=== PATIENT | male | born 1975 | race Two or more races ===

== ENCOUNTER → 2018-03-20 16:25 | Outpatient (CLI) | payer OTHER, SELFPAY ==
[2018-03-20 16:53] LABS: Basophils % 0.4 % (0.1-2.0); Eosinophils # 0.2 K/mm3 (0.0-0.4); Eosinophils % 2.9 % (0.1-12.0); Hematocrit 51.6 % (42.0-52.0); Hemoglobin 17.1 g/dL (14.1-18.0); Mean Corpuscular HGB Conc 33.2 g/dL (31.8-35.4); Mean Corpuscular Hemoglobin 28.9 pg (27.0-31.2); Mean Corpuscular Volume 87.2 fl (80-94); Mean Platelet Volume 10.3 fl (7.4-10.4); Monocytes # 0.4 K/mm3 (0.1-1.0); Monocytes % 5.2 % (1.7-9.3); Neutrophils # 4.7 K/mm3 (1.8-7.8); Neutrophils % 64.5 % (37.0-80.0); Platelet Count 159 K/mm3 (142-424); Red Blood Count 5.92 M/mm3 (4.60-6.20); Red Cell Distribution Width 13.1 % (11.5-17.5); White Blood Count 7.2 K/mm3 (4.8-10.8)
[2018-03-20 17:14] LABS: Hemoglobin A1C 5.4 % (0.0-7.0)
[2018-03-20 19:28] LABS: Alanine Aminotransferase 41 U/L (12-78); Albumin Level 5.1 gm/dL (3.4-5.0); Albumin/Globulin Ratio 1.4 (1.1-1.8); Alkaline Phosphatase 88 U/L (46-116); Anion Gap 10.7 mEq/L (5-15); Aspartate Amino Transferase 22 U/L (15-37); Bilirubin,Total 0.5 mg/dL (0.2-1.0); Blood Urea Nitrogen 8 mg/dL (7-18); Calcium 9.8 mg/dL (8.5-10.1); Carbon Dioxide 30 mmol/L (21.0-32.0); Chloride 104 mmol/L (98-107); Chol/HDL Ratio 4.6 (1-3.5); Cholesterol 213 mg/dL (140-200); Creatinine,Serum 0.92 mg/dL (0.70-1.30); Estimated Glomerular Filt Rate 90 ml/min (>60); GFR (African American) 109 ML/MIN (>60); Globulin 3.7 gm/dl (1.3-3.2); Glucose 92 mg/dL (74-106); HDL Cholesterol 46 mg/dL (27-67); LDL Cholesterol 144 mg/dL (0-130); Potassium 3.7 mmoL/L (3.5-5.1); Sodium 141 mmol/L (136-145); T4 (Thyroxine) 9.5 ug/dl (4.7-13.3); Thyroid Stimulating Hormone 1.98 uIU/ml (0.358-3.740); Total Protein,Serum 8.8 gm/dL (6.4-8.2); Triglycerides 115 mg/dL (30-200); VLDL Cholesterol 23 mg/dL (0-40)
[2018-03-22 07:15] LABS: Hep A Ab, IgM Negative (Negative); Hepatitis B Core Antibody IgM Negative (Negative); Hepatitis B Surface Antigen Negative (Negative)
[2018-03-22 18:05] LABS: Hepatitis C Antibody <0.1 s/co ratio (0.0-0.9); Vitamin D 25 Hydroxy 31.2 ng/mL (30.0-100.0)
[2018-03-22 18:06] LABS: Microalbumin, Urine 6.3 ug/mL (Not Estab.)
== END ==
PROVIDERS: Visit Provider Nurse Practitioner Family
DX: G62.9 Polyneuropathy, unspecified (principal); R73.9 Hyperglycemia, unspecified; M79.671 Pain in right foot; M79.672 Pain in left foot
CPT/HCPCS: 36415; 80053; 80061; 80074; 82043; 82652; 83036; 84436; 84443; 85025

== ENCOUNTER → 2018-04-08 14:49 | Outpatient (CLI) | payer OTHER, SELFPAY ==
--- NOTE | 2018-04-08 14:53 | MR_ITS ---
MR thoracic spine wo con HISTORY: Knot on back. Bilateral Hip pain and mid back pain. Rt sided back pain. ITS.REASON: mass ORDERING PHYSICIAN: Kyle Hamilton MD PATIENT AGE: 43 years Comparison: None TECHNIQUE: Standard multiplanar multiecho sequences are performed without contrast. 3-D MIP and myelographic images are also rendered and reviewed FINDINGS: There is normal alignment. There is mild mid thoracic curvature convex right. No acute bony findings are evident. No fracture or dislocation. No bony destructive process. No evidence of disc herniation. No intra or extradural defects are evident. A marker is placed low back area posteriorly overlying the palpable area of concern. There is a subcutaneous lipoma at this region measuring 7.4 cm cephalad to caudad, 2.4 cm in thickness, and up to 5.4 cm transverse. This is epicentered directly posterior to the spinous process of L1 and L2. This does not communicate with the intrathecal region. No complex components identified. IMPRESSION: Palpable abnormality of the low back at the L1-L2 area in midline corresponds to a benign-appearing lipoma
== END ==
PROVIDERS: PCP Nurse Practitioner Family; Visit Provider Surgery
DX: L72.9 Follicular cyst of the skin and subcutaneous tissue, unspecified (principal)
CPT/HCPCS: 72146

== ENCOUNTER → 2018-04-22 11:37 | Outpatient (CLI) | payer OTHER, SELFPAY ==
[2018-04-22 12:01] LABS: Basophils # 0.1 K/mm3 (0-0.2); Basophils % 0.6 % (0.1-2.0); Eosinophils # 0.2 K/mm3 (0.0-0.4); Eosinophils % 2.2 % (0.1-12.0); Hematocrit 43.1 % (42.0-52.0); Hemoglobin 15.6 g/dL (14.1-18.0); Lymphocytes # 2.7 K/mm3 (0.7-4.5); Mean Corpuscular HGB Conc 36.1 g/dL (31.8-35.4); Mean Corpuscular Hemoglobin 31.3 pg (27.0-31.2); Mean Corpuscular Volume 86.9 fl (80-94); Mean Platelet Volume 9.4 fl (7.4-10.4); Monocytes # 0.6 K/mm3 (0.1-1.0); Monocytes % 7.4 % (1.7-9.3); Neutrophils % 58.7 % (37.0-80.0); Platelet Count 177 K/mm3 (142-424); Red Blood Count 4.96 M/mm3 (4.60-6.20); Red Cell Distribution Width 13.4 % (11.5-17.5); White Blood Count 8.6 K/mm3 (4.8-10.8)
[2018-04-22 13:44] LABS: Anion Gap 12.3 mEq/L (5-15); Blood Urea Nitrogen 9 mg/dL (7-18); Calcium 9.1 mg/dL (8.5-10.1); Carbon Dioxide 30 mmol/L (21.0-32.0); Chloride 105 mmol/L (98-107); Creatinine,Serum 0.82 mg/dL (0.70-1.30); Estimated Glomerular Filt Rate 103 ml/min (>60); GFR (African American) 124 ML/MIN (>60); Glucose 92 mg/dL (74-106); Potassium 4.3 mmoL/L (3.5-5.1); Sodium 143 mmol/L (136-145)
== END ==
PROVIDERS: PCP Physician Assistant; Visit Provider Surgery
DX: D17.1 Benign lipomatous neoplasm of skin and subcutaneous tissue of trunk (principal)
CPT/HCPCS: 36415; 80048; 85025

== ENCOUNTER → 2018-05-27 08:28 | Outpatient (CLI) | payer OTHER, SELFPAY ==
--- NOTE | 2018-05-27 08:29 | CT_ITS ---
CT abdomen pelvis w con CLINICAL INDICATION: Right lower quadrant pain, appendicolith ITS.REASON: abdominal pain ORDERING PHYSICIAN: Kyle Hamilton MD PATIENT AGE: 43 years COMPARISON: 05/19/2018 TECHNIQUE: Axial images obtained with sagittal and coronal reformats. All CT scans at the facility use one or more dose reduction, viz: automated exposure control, ma/kV adjustment per patient size (including targeted exams where dose is matched to indication, i.e. head), or iterative reconstruction technique. PROCEDURE: Oral Contrast: Redicat IV Contrast: 75 mL's of Isovue-370. FINDINGS: No acute finding in the lung bases. The liver, spleen, adrenal glands, pancreas, and gallbladder have an unremarkable appearance. No renal or ureteral calculi. No hydronephrosis No intestinal obstruction or free air. The appendix has an unremarkable appearance. No intestinal obstruction or free air. No evidence of diverticulitis. No focal inflammatory change apparent. No pelvic mass or abnormal fluid collection. The prostate is somewhat prominent at 5.3 x 4.3 cm. There is a tiny umbilical hernia containing fat. No acute bony anomalies. There is a well-circumscribed lucent defect involving the left ilium and posteriorly having a benign appearance measuring approximately 11 mm. IMPRESSION: 1. No acute finding. No evidence of appendicitis. 2. Other nonacute findings as described above
== END ==
PROVIDERS: PCP Physician Assistant; Visit Provider Surgery
DX: R10.9 Unspecified abdominal pain (principal)
CPT/HCPCS: 74177; Q9967

== ENCOUNTER 2020-01-06 10:21 | Emergency (ER) | payer SELFPAY ==
[2020-01-06 10:24] VITALS: BP 138/93; PULSE 76; RESP 18; TEMP 36.7; O2SAT 97; BMI 25.2
--- NOTE | 2020-01-06 11:32 | HMH.EDWNDL ---
ED Disposition Clinical Impression: Laceration Disposition: Home, Self-Care Condition on Discharge: Good Instructions: DI for Laceration Repair Referrals: Vaishnavi Sanches PA [Primary Care Provider] - - Critical Care Critical Care Time: No Attestation: On 01/06/20, the high probability of a clinically significant, sudden or life threatening deterioration of the following system(s) required my full and direct attention, intervention and personal management. The time I documented below is in addition to time spent performing reported procedures but includes the following listed in this critical care notation. Medical Decision Making - Medical Records Medical records reviewed: Yes: I reviewed the patient's medical records. - Mack Inquiry Pt receiving controlled substance: No Vital Signs: 01/06/20 10:24 Temperature 98.1 F Temperature Source Oral Pulse Rate [Radial] 76 Respiratory Rate 18 Blood Pressure [Right Arm] 138/93 H Blood Pressure Mean [Right Arm] 108 Blood Pressure Source [Right Arm] Automatic Cuff Blood Pressure Position [Right Arm] Sitting 02 Sat by Pulse Oximetry 97 Oxygen Delivery Method Room Air - Lab Data Lab results reviewed: Yes: I reviewed the patient's lab results. Wound/Laceration HPI - General Chief Complaint: Wound/Laceration Stated Complaint: Ao [id number] lac to left palm,home accident Time Seen by Provider: 01/06/20 11:32 Mode of Arrival: Ambulatory Limitations: No Limitations Description of Symptoms (Recalled from ER Triage Doc. by RN): cut left palm of hand with a knife - History of Present Illness HPI narrative: 44-year-old male presents with a laceration on the left anterior part of his hand. Placed just prior to arrival Onset (ago): minute(s) Location: other Extremity Location: Left: hand Place: home Patient tetanus UTD: Yes Context: accidental Associated symptoms: none Treatments prior to arrival: cold therapy - Related Data Home Medications Medication Instructions Recorded Confirmed No Known Home Medications 09/18/19 09/18/19 Allergies Allergy/AdvReac Type Severity Reaction Status Date / Time No Known Allergies Allergy Verified 03/21/19 23:31 [facility] History - Hepatitis A Screen Drug use history?: No High risk sexual behaviors?: No History of sexually transmitted infection?: No Currently employed?: No Childcare worker?: No Do you have indoor plumbing?: Yes Do you have electricity?: Yes Attestation statement:: This patient has been screened for Hepatitis A risk factors. I have reviewed the patient's past medical history: Yes Medical History: Denies:: Cancer, Diabetes Mellitus Type 1, Diabetes Mellitus Type 2, MRSA, Seizures Other Medical History: Denies: Blood Transfusion Reaction Other Surgeries: Yes: No Previous Surgery, Other Amputation: No Fractures: No - Social History Educational Level: Completed High School Smoking Status: Current every day smoker # Packs/Day (cigarettes): 1 Alcohol Intake: never Substance Use Type: denies use Occupational Status: employed Housing: house Household Members: family Family Hx:: Heart Attack, Diabetes, Kidney Disease ROS Obtained: Yes All systems reviewed & no additional complaints - Constitutional Constitutional: Reports system reviewed and no additional complaints, except as docu - Eyes Eyes: Reports system reviewed and no additional complaints, except as docu - ENT Ears, Nose, Mouth, and Throat: Reports system reviewed and no additional complaints, except as docu - Cardiovascular Cardiovascular: Reports system reviewed and no additional complaints, except as docu - Respiratory Respiratory: Yes system reviewed and no additional complaints, except as docu - Gastrointestinal Gastrointestingal: Reports: system reviewed and no additional complaints, except as docu - Genitourinary Male Genitourinary: Reports system reviewed and no additional complaints, except as doc
[2020-01-06 11:47] VITALS: BP 122/48; PULSE 78; RESP 18; TEMP 36.8; O2SAT 100
== END 2020-01-06 11:48 | disposition home or self-care (01) ==
PROVIDERS: Emergency Provider Family Medicine; PCP Physician Assistant
DX: S61.412A Laceration without foreign body of left hand, initial encounter (principal); W26.0XXA Contact with knife, initial encounter; Y92.019 Unspecified place in single-family (private) house as the place of occurrence of the external cause; F17.210 Nicotine dependence, cigarettes, uncomplicated
CPT/HCPCS: 12002; 99282

== ENCOUNTER 2020-01-16 15:56 | Emergency (ER) | payer SELFPAY ==
[2020-01-16 15:57] VITALS: BP 112/76; PULSE 81; RESP 19; TEMP 36.8; O2SAT 100; BMI 23.6
[2020-01-16 16:00] VITALS: BMI 23.5
[2020-01-16 16:09] VITALS: BP 112/76; PULSE 81; RESP 19; TEMP 36.8; O2SAT 100
== END 2020-01-16 16:11 | disposition home or self-care (01) ==
PROVIDERS: Emergency Provider Nurse Practitioner; PCP Physician Assistant
DX: S61.412D Laceration without foreign body of left hand, subsequent encounter (principal)
CPT/HCPCS: 99201

== ENCOUNTER 2021-03-28 19:31 | Emergency (ER) | payer SELFPAY ==
[2021-03-28 20:39] VITALS: BP 121/67; PULSE 74; RESP 19; TEMP 36.8; O2SAT 98; BMI 22.0
--- NOTE | 2021-03-28 20:54 | HMH.EDUTC ---
[facility] [place] Disposition Clinical Impression: Exposure to COVID-19 virus, Viral syndrome Disposition: Home, Self-Care Condition on Discharge: Good Instructions: Preventing the Spread of Coronavirus Discharge Instructions Additional Instructions: Drink plenty of fluids. Take tylenol for pain or fever. Return if you begin to have difficulty breathing. Follow up with your regular doctor. GO TO THE ER FOR ANY WORSENING SYMPTOMS Quarantine until you know the results of your covid-19 test. If it is positive, the health department should call you and give you further instructions about your length of Quarantine and other thing. Prescriptions: Ondansetron [Zofran 4mg ODT] 4 mg PO Q8HP PRN #20 tab.rapdis PRN Reason: Nausea Transmission Status: Received by [id number] Referrals: Emelia Cobb APRN [Primary Care Provider] - Forms: Work/School Release Time of Disposition: 20:55 Medical Decision Making - Medical Records Medical records reviewed: No: I reviewed the patient's medical records. - Mack Inquiry Pt receiving controlled substance: No Vital Signs: 03/28/21 20:39 03/28/21 20:58 Temperature 98.2 F 98.2 F Temperature Source Tympanic Pulse Rate 74 Pulse Rate [Left] 74 Respiratory Rate 19 19 Blood Pressure 121/67 Blood Pressure [Right Arm] 121/67 Blood Pressure Mean [Right Arm] 85 02 Sat by Pulse Oximetry 98 - Lab Data Lab results reviewed: Yes: I reviewed the patient's lab results. Lab Results 03/28/21 20:58: Strep Scn Rapid Clinic Negative Orders (Tests/Meds): ORDERS Category Date Time Status Covid-19 Nasal PCR ([facility]) Routine Lab 03/28/21 20:35 Received Strep Screen Confirmation Stat Micro 03/28/21 20:58 Received [facility] [place] HPI - General Stated complaint: covid symptoms Time Seen by Provider: 03/28/21 20:54 Mode of Arrival: Ambulatory Source of Information: Patient Limitations: No Limitations Description of Symptoms (Recalled from Triage Doc. by RN): COVID TESTING SYMPTOMS SORE THROAT AND COUGH HEENT Symptoms (Recalled from RN notes): Yes Resp Symptoms (Recalled from RN notes): Yes Skin Symptoms (Recalled from RN notes): No MS Symptoms (Recalled from RN notes): No Functional Status (Recalled from RN notes): WNL - History of Present Illness Provider Complaint: He states that he has had a scratchy throat and chilling since yesterday. He has been exposed to covid. - Related Data Previous Rx's Medication Instructions Recorded Ondansetron [Zofran 4mg ODT] 4 mg PO Q8HP PRN #20 tab.rapdis 03/28/21 Allergies Allergy/AdvReac Type Severity Reaction Status Date / Time No Known Allergies Allergy Verified 03/28/21 20:42 - Worker's Comp Is this a Worker's Comp case?: No [facility] History - Hepatitis A Screen Drug use history?: No High risk sexual behaviors?: No History of sexually transmitted infection?: No Currently employed?: No Childcare worker?: No Do you have indoor plumbing?: Yes Do you have electricity?: Yes Attestation statement:: This patient has been screened for Hepatitis A risk factors. I have reviewed the patient's past medical history: Yes Medical History: Denies:: Cancer, Diabetes Mellitus Type 1, Diabetes Mellitus Type 2, MRSA, Seizures Other Medical History: Denies: Blood Transfusion Reaction Other Surgeries: Yes: No Previous Surgery, Other Amputation: No Fractures: No - Social History Smoking Status: Current every day smoker # Packs/Day (cigarettes): 1 Alcohol Intake: never Substance Use Type: denies use Occupational Status: employed Housing: house Household Members: family Family Hx:: Heart Attack, Diabetes, Kidney Disease ROS Obtained: Yes All systems reviewed & no additional complaints - Constitutional Constitutional: Reports system reviewed and no additional complaints, except as docu - Eyes Eyes: Reports system reviewed and no additional complaints, except as docu - ENT Ears, Nose, Mouth
[2021-03-28 20:58] VITALS: BP 121/67; PULSE 74; RESP 19; TEMP 36.8; O2SAT 98
[2021-03-28 21:12] LABS: UTC Strep Screen (Rapid) Negative (Negative)
--- NOTE | 2021-03-29 11:53 | PC.NURSE ---
relayed covid positive results to .
== END 2021-03-28 21:05 | disposition home or self-care (01) ==
PROVIDERS: Emergency Provider Nurse Practitioner Family; PCP Nurse Practitioner Family
DX: U07.1 COVID-19 (principal); B34.9 Viral infection, unspecified
CPT/HCPCS: 87880; 99202; G0463; U0003

== ENCOUNTER 2021-08-28 11:56 | Emergency (ER) | payer SELFPAY ==
[2021-08-28 12:45] VITALS: BP 142/87; PULSE 66; RESP 20; TEMP 36.7; O2SAT 98; BMI 25.2
--- NOTE | 2021-08-28 13:11 | HMH.EDUTC ---
[facility] [place] Disposition Clinical Impression: Exposure to COVID-19 virus, Viral syndrome Acute bronchitis Qualifiers: Bronchitis organism: unspecified organism Qualified Code(s): J20.9 - Acute bronchitis, unspecified Disposition: Home, Self-Care Condition on Discharge: Good Instructions: Acute Bronchitis, DI for Acute Bronchitis Additional Instructions: Drink plenty of fluids. Take tylenol or ibuprofen for pain or fever. Take the medications as directed. Follow up with your regular doctor. GO TO THE ER FOR ANY WORSENING SYMPTOMS Quarantine until you know the results of your covid-19 test. If it is positive, the health department should call you and give you further instructions about your length of Quarantine and other things. Notify your school or workplace of your results and follow their instructions regarding return to work/school. Don't start the oral steroids until tomorrow, since you had the shot here today. The cough medication (promethazine dm) will make you drowsy, so don't drive or operate heavy machinery after taking it. Prescriptions: Promethazine/Dextromethorphan [Promethazine-Dm Syrup] 5 ml PO Q6HP PRN #240 ml PRN Reason: Cough Transmission Status: Received by [id number] Amoxicillin/Potassium Clav [Augmentin 875-125 Tablet] 1 tab PO Q12H 10 Days #20 tab Transmission Status: Received by [id number] methylPREDNISolone [Medrol] 4 mg PO DIRECTED 6 Days #21 packet Transmission Status: Received by [id number] Referrals: Provider,Referral, [Primary Care Provider] - Forms: Work/School Release Time of Disposition: 14:06 Medical Decision Making - Medical Records Medical records reviewed: No: I reviewed the patient's medical records. - Mack Inquiry Pt receiving controlled substance: No Vital Signs: 08/28/21 12:45 08/28/21 14:13 Temperature 98.0 F 98.0 F Temperature Source Oral Pulse Rate 66 Pulse Rate [Right Brachial] 66 Respiratory Rate 20 20 Blood Pressure 142/87 H Blood Pressure [Right Arm] 142/87 H Blood Pressure Mean [Right Arm] 105 Blood Pressure Source [Right Arm] Automatic Cuff Blood Pressure Position [Right Arm] Sitting 02 Sat by Pulse Oximetry 98 Oxygen Delivery Method Room Air - Lab Data Lab results reviewed: Yes: I reviewed the patient's lab results. Lab Results 08/28/21 13:41: Influenza Type A Ag Negative, Influenza Type B Ag Negative 08/28/21 13:41: Strep Scn Rapid Clinic Negative Orders (Tests/Meds): ED MEDICATIONS Discontinued Medications Generic Name Dose Route Start Last Admin Trade Name Freq PRN Reason Stop Dose Admin Ceftriaxone Sodium 1 gm 08/28/21 13:59 08/28/21 14:10 Ceftriaxone 1gm Vial IM 08/28/21 14:00 1 gm ONCE ONE Administration Lidocaine HCl 0 ml 08/28/21 13:59 08/28/21 14:10 Lidocaine 1% 5ml Pf Vial IM 08/28/21 14:00 2 ml ONCE ONE Administration Methylprednisolone Sodium Succinate 125 mg 08/28/21 13:59 08/28/21 14:10 Methylprednisolone Sod Succ 125mg Vial IM 08/28/21 14:00 125 mg ONCE ONE Administration ORDERS Category Date Time Status Covid-19 Nasal PCR ([facility]) Routine Lab 08/28/21 13:41 Received Strep Screen Confirmation Stat Micro 08/28/21 13:41 Received [facility] [place] HPI - General Stated complaint: cough, vomiting, h/a, runny nose Time Seen by Provider: 08/28/21 13:59 - History of Present Illness Provider Complaint: He states that for the past 4 days he has had a cough, chest congestion, sore throat and sinus congestion. He denies fever and chills. He denies shortness of breath. - Related Data Previous Rx's Medication Instructions Recorded Ondansetron [Zofran 4mg ODT] 4 mg PO Q8HP PRN #20 tab.rapdis 03/28/21 Amoxicillin/Potassium Clav 1 tab PO Q12H 10 Days #20 tab 08/28/21 [Augmentin 875-125 Tablet] Promethazine/Dextromethorphan 5 ml PO Q6HP PRN #240 ml 08/28/21 [Promethazine-Dm Syrup] methylPREDNISolone [Medrol]
[2021-08-28 13:44] LABS: UTC Influenza A Antigen Negative (Negative); UTC Influenza B Antigen Negative (Negative); UTC Strep Screen (Rapid) Negative (Negative)
[2021-08-28 14:13] VITALS: BP 142/87; PULSE 66; RESP 20; TEMP 36.7; O2SAT 98
== END 2021-08-28 14:20 | disposition home or self-care (01) ==
PROVIDERS: Emergency Provider Nurse Practitioner Family
DX: J20.9 Acute bronchitis, unspecified (principal); B34.9 Viral infection, unspecified; F17.210 Nicotine dependence, cigarettes, uncomplicated
CPT/HCPCS: 87804; 87880; 96372; 99202; C9803; G0463; J0696; U0003; U0005

== ENCOUNTER 2021-09-10 19:41 | Emergency (ER) | payer OTHER, SELFPAY ==
[2021-09-10 19:41] VITALS: BP 112/83; PULSE 70; RESP 18; TEMP 36.8; O2SAT 97; BMI 25.2
--- NOTE | 2021-09-10 20:45 | HMH.EDUTC ---
[facility] [place] Disposition Clinical Impression: Encounter for laboratory testing for COVID-19 virus Disposition: Home, Self-Care Condition on Discharge: Good Instructions: DI for COVID-19 (Suspected or Confirmed ), Preventing the Spread of Coronavirus Discharge Instructions Additional Instructions: *Monitor Temp, Over the counter Motrin or Tylenol as directed/as needed Tylenol every 4 hours and Motrin every 6 hours (as long as your family doctor has told you that you can take it) for fever or pain. and straight to ER if unable to lower temp less than 101.0 after medication given *Warm salt water gargles may help to soothe the throat *Throat Lozenges *Warm fluids like tea with honey may help to soothe the throat *Sleep elevated *Humidifier/Vaporizer Follow up IMMEDIATELY for new or worsening symptoms or no Noticeable improvement over the next 48-72 hours. 911 for difficulty breathing or swallowing You were tested for today for COVID19 your test result should be back in the next 24-48 hours, you may check your results on the [facility] Health Portal if you have trouble logging on you may call [employer] support for assistance You was given a handout with instructions for Self Quarantine and Self isolation for while you wait on test results and what to do if they are positive Make sure to take your Vitamins Vit. C Vit D and Zinc if you can take them Referrals: Vaishnavi Sanches PA [Primary Care Provider] - Forms: Work/School Release Medical Decision Making - Mack Inquiry Pt receiving controlled substance: No Mack was queried for this patient: No Vital Signs: 09/10/21 19:41 Temperature 98.3 F Temperature Source Oral Pulse Rate [Right] 70 Respiratory Rate 18 Blood Pressure [Right Arm] 112/83 Blood Pressure Mean [Right Arm] 92 02 Sat by Pulse Oximetry 97 [facility] [place] HPI - General Stated complaint: COVID TEST Time Seen by Provider: 09/10/21 20:45 Mode of Arrival: Ambulatory Description of Symptoms (Recalled from Triage Doc. by RN): pt family test positive pt has no symptoms and wants a test HEENT Symptoms (Recalled from RN notes): No Resp Symptoms (Recalled from RN notes): No Skin Symptoms (Recalled from RN notes): No MS Symptoms (Recalled from RN notes): No Functional Status (Recalled from RN notes): na - History of Present Illness Provider Complaint: Patient states that several people in his immediate family recently tested positive for COVID State that he is not having any symptoms but wanted to get tested - Related Data Previous Rx's Medication Instructions Recorded Ondansetron [Zofran 4mg ODT] 4 mg PO Q8HP PRN #20 tab.rapdis 03/28/21 Amoxicillin/Potassium Clav 1 tab PO Q12H 10 Days #20 tab 08/28/21 [Augmentin 875-125 Tablet] Promethazine/Dextromethorphan 5 ml PO Q6HP PRN #240 ml 08/28/21 [Promethazine-Dm Syrup] methylPREDNISolone [Medrol] 4 mg PO DIRECTED 6 Days #21 08/28/21 packet Allergies Allergy/AdvReac Type Severity Reaction Status Date / Time No Known Allergies Allergy Verified 03/28/21 20:42 - Worker's Comp Is this a Worker's Comp case?: No [facility] History - Hepatitis A Screen Drug use history?: No High risk sexual behaviors?: No History of sexually transmitted infection?: No Currently employed?: No Childcare worker?: No Do you have indoor plumbing?: Yes Do you have electricity?: Yes Attestation statement:: This patient has been screened for Hepatitis A risk factors. I have reviewed the patient's past medical history: Yes Medical History: Denies:: Cancer, Diabetes Mellitus Type 1, Diabetes Mellitus Type 2, MRSA, Seizures Other Medical History: Denies: Blood Transfusion Reaction Other Surgeries: Yes: No Previous Surgery, Other Amputation: No Fractures: No - Social History Smoking Status: Current every day smoker # Packs/Day (cigarettes): 1 Alcohol Intake: never Substance Use Type: denies use Occupational Status: employed Housing: house Household Members: [employer]
[2021-09-10 21:08] VITALS: BP 112/83; PULSE 70; RESP 18; TEMP 36.8
== END 2021-09-10 21:08 | disposition home or self-care (01) ==
PROVIDERS: Emergency Provider Nurse Practitioner; PCP Physician Assistant
DX: Z20.822 Contact with and (suspected) exposure to COVID-19 (principal)
CPT/HCPCS: 99202; C9803; G0463; U0003; U0005